=== PATIENT | male | born 1945 | race Caucasian/White ===

== ENCOUNTER 2021-10-19 10:22 | Outpatient (CLI) | payer MEDICARE, BC | END 2021-10-19 10:23 | disposition home or self-care (01) | LOC: CSHULT 10:22 | PROVIDERS: ATTEND Physician Assistant | DX: E83.52 Hypercalcemia (principal); E04.2 Nontoxic multinodular goiter | CPT/HCPCS: 76536 ==

== ENCOUNTER 2021-11-18 13:28 | Outpatient (CLI) | payer MEDICARE, BC | END 2021-11-18 13:29 | disposition home or self-care (01) | LOC: CSHULT 13:28 | PROVIDERS: ATTEND Physician Assistant | DX: E04.1 Nontoxic single thyroid nodule (principal); E04.2 Nontoxic multinodular goiter | CPT/HCPCS: 76536 ==

== ENCOUNTER 2021-11-29 11:26 | Outpatient (CLI) | payer MEDICARE, BC ==
[2021-11-30 11:50] LABS: SARS-CoV-2 PCR by NAA Not Detected (NotDetected)
== END 2021-11-29 11:27 | disposition home or self-care (01) ==
LOC: CSHLAB 11:26
PROVIDERS: ATTEND Internal Medicine Gastroenterology
DX: Z20.822 Contact with and (suspected) exposure to COVID-19 (principal); K62.5 Hemorrhage of anus and rectum
CPT/HCPCS: U0003; U0005

== ENCOUNTER 2021-12-02 05:40 | Day surgery (SDC) | payer MEDICARE, BC ==
[2021-11-22 14:36] VITALS: BMI 24.4
[2021-12-02] MEDS ORDERED: Lidocaine 1% MPF 2 ML VIAL ONE (06:57)
[2021-12-02] MEDS ORDERED: PROPOFOL 40 ML ONE (07:07)
[2021-12-02] MEDS ORDERED: PROPOFOL 20 ML ONE ×2 (08:02→08:20)
== END 2021-12-02 09:10 | disposition home or self-care (01) ==
LOC: CSHSDC 05:40
PROVIDERS: ATTEND Internal Medicine Gastroenterology
PROC: 0DBN8ZZ Excision of Sigmoid Colon, Via Natural or Artificial Opening Endoscopic (ICD-10-PCS; principal; 2021-12-02)
DX: K62.5 Hemorrhage of anus and rectum (principal); K63.5 Polyp of colon; K62.7 Radiation proctitis; K64.9 Unspecified hemorrhoids; I10 Essential (primary) hypertension; E11.9 Type 2 diabetes mellitus without complications; E78.5 Hyperlipidemia, unspecified; Z85.46 Personal history of malignant neoplasm of prostate
CPT/HCPCS: 88305; J2704